=== PATIENT | male | born 1960 | race Caucasian/White ===

== ENCOUNTER 2016-05-22 05:54 | Inpatient (IN) | payer OTHER ==
[2016-05-17 08:32] VITALS: BMI 34.4
[2016-05-17 08:40] VITALS: BP_SYST 124; RESP 20; TEMP 97.8
[2016-05-21 13:57] VITALS: BP_SYST 124; RESP 20; TEMP 97.8; BMI 34.4
[~2016-05-22] VITALS: Ht 195.6 cm; Wt 131.5 kg
[2016-05-22] VITALS (16 sets, daily range): BP systolic 120–165; RESP 14–18; TEMP 97.4–98; Ht 195.6 cm; Wt 131.5 kg
[2016-05-22] MEDS ORDERED: ROPIVACAINE 0.5% 139 MG, EPINEPHrine 1:1,000 0.2 MG, KETOROLAC INJ 30 MG, MORPHINE 10 MG SUBQ ONE ×4 (06:10)
[2016-05-22] MEDS ORDERED: CEFAZOLIN 2,000 MG in SODIUM CHLORIDE 0.9% 100 ML IV ONE (06:10)
[2016-05-22] MEDS ORDERED: MIDAZOLAM 2 MG/2 ML INJ IV ONE (06:40)
[2016-05-22] MEDS ORDERED: LIDOCAINE 1% BUFFERED 1 ML SYR INTRADERM PRN (06:40)
[2016-05-22] MEDS ORDERED: LACT RINGERS 1,000 ML IV SCH ×2 (06:40→08:45)
[2016-05-22] MEDS ORDERED: METOCLOPRAMIDE 10 MG/2 ML VIAL IV PUSH ONE (06:40)
[2016-05-22] MEDS ORDERED: CEFAZOLIN 3,000 MG in SODIUM CHLORIDE 0.9% 100 ML IV ONE (06:50)
[2016-05-22] MEDS ORDERED: MEPERIDINE 25 MG/ML IV PRN (07:00)
[2016-05-22] MEDS ORDERED: OXYCODONE 5 MG TAB PO PRN (07:00)
[2016-05-22] MEDS ORDERED: DILAUDID 1 MG/ML AMP IV PRN (07:00)
[2016-05-22] MEDS ORDERED: MORPHINE 4 MG/ML SYR IV PRN ×2 (07:00→08:45)
[2016-05-22] MEDS ORDERED: ONDANSETRON 4 MG VIAL IV PRN ×2 (07:00→08:45)
[2016-05-22] MEDS ORDERED: MORPHINE 2 MG/ML SYR IV PRN ×2 (07:00→08:45)
[2016-05-22] MEDS ORDERED: TEMAZEPAM 15 MG CAP PO PRN (08:45)
[2016-05-22] MEDS ORDERED: ACETAMINOPHEN 325 MG TAB PO PRN (08:45)
[2016-05-22] MEDS ORDERED: KETOROLAC 30 MG/ML VIAL IV PRN (08:45)
[2016-05-22] MEDS ORDERED: DIPHENHYDRAMINE 25 MG CAP PO PRN (08:45)
[2016-05-22] MEDS: MAG HYDROX 30 ML UDC PO SCH (09:00)
[2016-05-22] MEDS: DOCUSATE SOD 100 MG CAP PO SCH ×2 (09:00→20:55)
[2016-05-22] MEDS ORDERED: PROPOFOL 20 ML PER ML IV ONE (10:03)
[2016-05-22] MEDS ORDERED: FENTANYL 100 MCG/2 ML AMP IV ONE (10:03)
[2016-05-22] MEDS ORDERED: PHENYLEPHRINE 10 MG/ML VIAL IV ONE (10:03)
[2016-05-22] MEDS ORDERED: GLYCOPYRROLATE 0.2 MG/ML VIAL IV ONE (10:03)
[2016-05-22] MEDS ORDERED: ONDANSETRON 4 MG VIAL IV PUSH ONE (10:03)
[2016-05-22] MEDS ORDERED: NEOSTIGMINE 10 MG/10 ML VIAL IV ONE (10:03)
[2016-05-22] MEDS ORDERED: DEXAMETHASONE 4 MG/ML VIAL IV ONE (10:03)
[2016-05-22] MEDS ORDERED: ROCURONIUM 50 MG VIAL IV ONE (10:03)
[2016-05-22] MEDS ORDERED: ACETAMINOPHEN 1,000 MG/100 ML IV ONE (10:03)
[2016-05-22] MEDS ORDERED: LIDOCAINE 2% SYR 5 ML IV ONE (10:03)
[2016-05-22] MEDS: CEFAZOLIN 2,000 MG in SODIUM CHLORIDE 0.9% 100 ML IV SCH ×2 (12:26→18:08)
[2016-05-22] MEDS ORDERED: BACITRACIN 50,000 UNITS INJ IRRIG ONE (13:27)
[2016-05-22] MEDS: SENNA 8.6 MG TAB PO SCH (20:55)
[2016-05-22] MEDS ORDERED: FLUOXETINE 20 MG CAP PO SCH (21:00)
[2016-05-22] MEDS ORDERED: ALLOPURINOL 300 MG TAB PO SCH (21:00)
[2016-05-22] MEDS ORDERED: TAMSULOSIN 0.4 MG CAP PO SCH (21:00)
[2016-05-22] MEDS ORDERED: PANTOPRAZOLE 40 MG TAB PO SCH (21:00)
[2016-05-23 00:11] VITALS: BP_SYST 142; RESP 18; TEMP 98.2
[2016-05-23] MEDS: CEFAZOLIN 2,000 MG in SODIUM CHLORIDE 0.9% 100 ML IV SCH ×2 (00:31→06:02)
[2016-05-23 04:51] VITALS: BP_SYST 144; RESP 18; TEMP 98.3
[2016-05-23] MEDS ORDERED: ENOXAPARIN 40 MG/0.4 ML SYR SUBQ SCH (06:00)
[2016-05-23 07:43] VITALS: BP_SYST 137; RESP 16; TEMP 97.8
[2016-05-23] MEDS: MAG HYDROX 30 ML UDC PO SCH (08:56)
[2016-05-23] MEDS: DOCUSATE SOD 100 MG CAP PO SCH (08:57)
[2016-05-23] MEDS: SENNA 8.6 MG TAB PO SCH (08:57)
[2016-05-23] MEDS ORDERED: POLYETHYLENE GLYCOL 17 GM PACKET PO SCH (09:00)
[2016-05-23] MEDS ORDERED: METHOCARBAMOL 750 MG TAB PO SCH (09:47)
[2016-05-23] MEDS ORDERED: BISACODYL 10 MG SUPP RECTAL PRN (09:50)
[2016-05-23] MEDS ORDERED: FLEET ENEMA 132 ML BTL RECTAL PRN (09:50)
[2016-05-23 11:40] VITALS: BP_SYST 149; RESP 16; TEMP 97.9
[2016-05-23 14:23] VITALS: BP_SYST 149; RESP 16; TEMP 97.9
== END 2016-05-23 16:12 | disposition home or self-care (01) | DRG 470 ==
LOC: ENRESERVDT → ENRESERVTM → ENPENDDIS 05:54 → SDS 05:54 → 2NO 09:37
PROVIDERS: ADMIT Internal Medicine; ATTEND Internal Medicine
PROC: 0SRB04A Replacement of Left Hip Joint with Ceramic on Polyethylene Synthetic Substitute, Uncemented, Open Approach (ICD-10-PCS; principal; 2016-05-22 07:06)
DX: M16.12 Unilateral primary osteoarthritis, left hip (principal); I10 Essential (primary) hypertension; E78.5 Hyperlipidemia, unspecified; Z79.82 Long term (current) use of aspirin; G40.909 Epilepsy, unspecified, not intractable, without status epilepticus; Z86.73 Personal history of transient ischemic attack (TIA), and cerebral infarction without residual deficits; Z85.46 Personal history of malignant neoplasm of prostate; G47.30 Sleep apnea, unspecified
CPT/HCPCS: 36415; 76001; 80048; 85014; 85018; 85025; 85610; 85730; 86850; 86900; 86901; 94762; 94799